=== PATIENT | female | born 1980 | race Caucasian/White ===

== ENCOUNTER → 2018-02-21 | Outpatient (CLI) | payer OTHER ==
[~2018-02-21] MED LIST: FLEXERIL 1010 MG/TAB PO; IUD; MOTRIN 800800 MG/TAB PO; NAPROXEN EC500 MG PO; NORCO 325 MG-51 TAB PO; VICODIN PO
== END ==
LOC: COL.RAD 14:30
DX: M25.511 Pain in right shoulder (principal)